=== PATIENT | female | born 1985 | race Caucasian/White ===

== ENCOUNTER → 2016-07-22 | Outpatient (CLI) | payer BC ==
[~2016-07-22] MED LIST: AUGMENTIN 875-1 EACH PO; DICLEGIS1 TCP PO; FERROUS SULFAT325 M1 PO; FLINTSTONES1 CTB PO; MOTRIN 400MG.400 MG PO; PERCOCET 5/3251 EACH PO
== END ==
LOC: LAB 17:08
DX: Z34.80 Encounter for supervision of other normal pregnancy, unspecified trimester (principal)